=== PATIENT | female | born 1945 | race Caucasian/White ===

== ENCOUNTER 2019-12-01 12:30 | Emergency (ER) | payer MEDICARE, OTHER ==
[~2019-12-01] VITALS: Ht 162.6 cm; Wt 62.1 kg
--- NOTE | 2019-12-01 13:12 | NUR ---
GENERAL MALAISE SINCE MONDAY. THIS MORNING DEVLOPED DIZZINESS, SANCHEZ THAT GOES UP BACK OF NECK WITH NAUSEA. PT HAS BEEN MONITORING BLOOD PRESSURE SINCE MONDAY AND RUNNING HIGH FOR PT, UP TO 150 SYSTOLIC
[2019-12-01 13:31] LABS: BASOPHILS # (AUTO) 0.02 x10^3/uL (0-0.1); BASOPHILS % (AUTO) 0 % (0-1); EOSINOPHILS # (AUTO) 0.04 x10^3/uL (0-0.4); EOSINOPHILS % (AUTO) 1 % (1-7); LYMPHOCYTES # (AUTO) 1.51 x10^3/uL (1-3.4); LYMPHOCYTES % (AUTO) 28 % (22-44); MD NO; MEAN CORPUSCULAR HEMOGLOBIN 32.8 pg (27.0-34.8); MEAN CORPUSCULAR HGB CONC 33.4 g/dL (32.4-35.8); MEAN CORPUSCULAR VOLUME 98.2 fL (80-100); MEAN PLATELET VOLUME 8.3 fL (7.4-10.4); MONOCYTES # (AUTO) 0.52 x10^3/uL (0.2-0.8); MONOCYTES % (AUTO) 10 % (2-9); NEUTROPHILS # (AUTO) 3.24 x10^3/uL (1.8-6.8); NEUTROPHILS % (AUTO) 61 % (42-75); PLATELET COUNT 234 x10^3/uL (130-400); RED BLOOD COUNT 4.67 x10^6/uL (3.82-5.3); RED CELL DISTRIBUTION WIDTH 12.8 % (9.6-15.2)
[2019-12-01] MEDS ORDERED: ONDANSETRON 2MG/ML, 2ML ONE (13:33)
[2019-12-01 13:44] LABS: ALBUMIN 3.8 g/dL (3.4-5.0); ANION GAP 5 mmol/L (5-15); CALCIUM 9.6 mg/dL (8.5-10.1); CHLORIDE 105 mmol/L (98-107); CREATININE 0.89 mg/dL (0.55-1.02)
[2019-12-01 13:47] LABS: TROPONIN I < 0.015 ng/mL (0.000-0.045)
[2019-12-01] MEDS ORDERED: ONDANSETRON 2MG/ML, 2ML IVPush ONE (14:00)
[2019-12-01] MEDS ORDERED: SODIUM CHLORIDE 0.9% 1,000ML IVBOLUS ONE (14:00)
[2019-12-01 15:12] VITALS: BP 147/64
--- NOTE | 2019-12-01 15:13 | NUR ---
PT STATES SHE IS NOT FEELING MUCH BETTER SINCE ARRIVAL. PT STATES SHE HAS AN APPOINTMENT WITH HER PRIMARY PROVIDER TOMORROW AND WILL FOLLOW UP. GIVEN DISCHARGE PAPERS AND AMBULATED TO DISCHARGE WINDOW, STEADY GAIT
== END 2019-12-01 15:15 | disposition home or self-care (01) ==
LOC: ED 14:44
DX: I10 Essential (primary) hypertension (principal); R51 Headache; R42 Dizziness and giddiness; R19.7 Diarrhea, unspecified; R07.9 Chest pain, unspecified; I45.10 Unspecified right bundle-branch block; Z87.891 Personal history of nicotine dependence
CPT/HCPCS: 36415; 71045; 80048; 82040; 83880; 84484; 85025; 93005; 96361; 96374; 99285; J2405; J7030